=== PATIENT | male | born 1970 | race Two or more races ===

== ENCOUNTER 2023-04-15 14:49 | Inpatient (IN) | payer OTHER ==
[2023-04-15 17:32] VITALS: BMI 18.8
[2023-04-15] MEDS ORDERED: methaDONE HCL 10 MG TABLET (FOR DETOX USE ONLY) PO ONE (19:30)
[2023-04-15] MEDS ORDERED: guaiFENesin 600 MG TABLET.ER (FP) PO PRN (19:30)
[2023-04-15] MEDS ORDERED: NALOXONE HCL (KLOXXADO) 8 MG SPRAY NS PRN (19:30)
[2023-04-15] MEDS ORDERED: POLYETHYLENE GLYCOL (HEALTHYLAX) 3350 17 GM PACKET PO PRN (19:30)
[2023-04-15] MEDS ORDERED: BENZOCAINE/MENTHOL (CHLORASEPTIC ) LOZENGE MM PRN (19:30)
[2023-04-15] MEDS ORDERED: IBUPROFEN 400 MG TABLET (FP) PO PRN (19:30)
[2023-04-15] MEDS ORDERED: cloNIDine HCL 0.1 MG TABLET PO PRN (19:30)
[2023-04-15] MEDS ORDERED: NALOXONE HCL 0.4 MG/ML VIAL IM PRN (19:30)
[2023-04-15] MEDS ORDERED: MAGNESIUM HYDROX 2400MG/30ML ORAL SUSPENSION 30 ML CUP PO PRN (19:30)
[2023-04-15] MEDS ORDERED: DICYCLOMINE HCL 10 MG CAPSULE PO PRN (19:30)
[2023-04-15] MEDS ORDERED: BENZONATATE 200 MG CAPSULE PO PRN (19:30)
[2023-04-15] MEDS ORDERED: ACETAMINOPHEN 325 MG TABLET (FP) PO PRN (19:30)
[2023-04-15] MEDS ORDERED: NICOTINE POLACRILEX 2 MG GUM BUC PRN (19:30)
[2023-04-15] MEDS ORDERED: MAG HYDROX/AL HYDROX/SIMETH 30 ML UNIT-DOSE CUP PO PRN (19:30)
[2023-04-15] MEDS ORDERED: BISMUTH SUBSALICYLATE 524 MG/30 ML PO PRN (19:30)
[2023-04-15] MEDS ORDERED: IBUPROFEN 600 MG TABLET (FP) PO PRN (19:30)
[2023-04-15] MEDS ORDERED: methaDONE HCL 10 MG TABLET (FOR DETOX USE ONLY) ONE (20:35)
[2023-04-15] MEDS: MELATONIN 5 MG TABLETS PO SCH (22:31)
[2023-04-15] MEDS: THIAMINE HCL 100 MG TABLET (FP) PO SCH (22:31)
[2023-04-15] MEDS: METHOCARBAMOL 500 MG TABLET PO PRN (22:31)
[2023-04-16] MEDS: PRENATAL VITAMINS W/ FOLIC ACID TABLET (FP) PO SCH (09:34)
[2023-04-16] MEDS: NICOTINE 14 MG/24 HOURS TOPICAL PATCH TD SCH (09:37)
[2023-04-16 11:40] LABS: CHLORIDE 105 mmol/L (98-107); POTASSIUM 4.1 mmol/L (3.5-5.1); SODIUM 141 mmol/L (136-145)
[2023-04-16 11:46] LABS: HEMATOCRIT 36.8 % (35.4-49); HEMOGLOBIN 12.6 GM/dL (11.7-16.9); MCH 29.9 pg (25.7-33.7); MCHC 34.3 g/dl (32.0-35.9); MEAN CELL VOLUME 87.2 fl (80-96); MEAN PLT VOLUME 9.2 fl (7.5-11.1); PLATELET COUNT 225 10^3/uL (134-434); RBC 4.22 M/mm3 (4.00-5.60); RDW 14.1 % (11.9-15.9); WHITE BLOOD COUNT 4.6 K/mm3 (4.0-10.0)
[2023-04-16 12:04] LABS: CREATININE 0.7 mg/dL (0.55-1.3)
[2023-04-16 12:06] LABS: CALCIUM 8.8 mg/dL (8.5-10.1); TOT PROT 6.8 g/dl (6.4-8.2)
[2023-04-16 12:07] LABS: ALK PHOS 79 U/L (45-117); ANION GAP 7 mmol/L (4-13); CO2 29 mmol/L (21-32); GLUCOSE,RANDOM 80 mg/dL (74-106)
[2023-04-16 12:08] LABS: BLOOD UREA NITROGEN 10.7 mg/dL (7-18)
[2023-04-16 12:10] LABS: SGOT/AST 18 U/L (15-37); SGPT/ALT 18 U/L (13-61)
[2023-04-16 12:14] LABS: BILIRUBIN,TOTAL 0.6 mg/dL (0.2-1)
[2023-04-16] MEDS: METHOCARBAMOL 500 MG TABLET PO PRN (22:19)
[2023-04-16] MEDS: MELATONIN 5 MG TABLETS PO SCH (22:20)
[2023-04-16] MEDS: THIAMINE HCL 100 MG TABLET (FP) PO SCH (22:20)
[2023-04-17] MEDS: METHOCARBAMOL 500 MG TABLET PO PRN ×2 (08:00→22:08)
[2023-04-17] MEDS: NICOTINE 14 MG/24 HOURS TOPICAL PATCH TD SCH (09:44)
[2023-04-17] MEDS: PRENATAL VITAMINS W/ FOLIC ACID TABLET (FP) PO SCH (09:44)
[2023-04-17] MEDS ORDERED: methaDONE HCL 10 MG TABLET (FOR DETOX USE ONLY) PO ONE (10:00)
[2023-04-17 20:46] VITALS: RESP 16
[2023-04-17] MEDS: MELATONIN 5 MG TABLETS PO SCH (22:08)
[2023-04-17] MEDS: THIAMINE HCL 100 MG TABLET (FP) PO SCH (22:08)
[2023-04-18 05:51] VITALS: BP 132/71; PULSE 59; TEMP 98.4
[2023-04-19] MEDS ORDERED: methaDONE HCL 10 MG TABLET (FOR DETOX USE ONLY) PO ONE (10:00)
== END 2023-04-18 06:50 | disposition left against medical advice (07) | DRG 770 ==
LOC: YASAS 14:49 → Y6N 20:17
PROVIDERS: ADMIT Allergy & Immunology; ATTEND Surgery
PROC: HZ2ZZZZ Detoxification Services for Substance Abuse Treatment (ICD-10-PCS; principal; 2023-04-15)
DX: F11.23 Opioid dependence with withdrawal (principal); F14.20 Cocaine dependence, uncomplicated; F10.20 Alcohol dependence, uncomplicated; F17.210 Nicotine dependence, cigarettes, uncomplicated; Z56.0 Unemployment, unspecified; Z59.00 Homelessness unspecified
CPT/HCPCS: 36415; 80053; 80307; 85027; 86593; 86780; 87635; 93005; 93010